=== PATIENT | male | born 1955 | race Caucasian/White ===

== ENCOUNTER → 2019-08-11 | Outpatient (CLI) | payer BC, OTHER ==
[~2019-08-11] MED LIST: ASPIRIN325 PO; ATORVASTATIN CA40 MG PO; BAYER CHEWABLE81 MG PO; DOXYCYCLINE 10100 MG PO; EFFIENT10 MG PO; HYDROCHLOROTHIA25 M2 PO
== END ==
LOC: SJCVCIMAG 08:56
DX: I65.23 Occlusion and stenosis of bilateral carotid arteries (principal)

== ENCOUNTER → 2020-08-12 | Outpatient (CLI) | payer BC, OTHER | LOC: SJCVCIMAG 09:00 | PROVIDERS: ATTEND Internal Medicine | DX: I65.23 Occlusion and stenosis of bilateral carotid arteries (principal); I49.3 Ventricular premature depolarization; E78.5 Hyperlipidemia, unspecified; I10 Essential (primary) hypertension; F17.200 Nicotine dependence, unspecified, uncomplicated; Z95.5 Presence of coronary angioplasty implant and graft ==